=== PATIENT | male | born 1990 | race Hispanic/Latino ===

== ENCOUNTER 2020-12-27 12:16 | Emergency (ER) | payer OTHER ==
[~2020-12-27] VITALS: Ht 190.5 cm; Wt 136.1 kg
[2020-12-27] MEDS ORDERED: PREDNISONE20 MG PO (15:32)
== END 2020-12-27 15:43 | disposition home or self-care (01) ==
LOC: ED 12:16
DX: M54.5 Low back pain (principal)
CPT/HCPCS: 99283; J7512